=== PATIENT | male | born 1980 | race Two or more races ===

== ENCOUNTER 2017-03-08 22:54 | Emergency (ER) | payer SELFPAY ==
[~2017-03-08] VITALS: Ht 167.6 cm; Wt 90.7 kg
--- NOTE | 2017-03-08 23:07 | PHYS DOC ---
Adult General Chief Complaint Chief Complaint: ALLERGIC REACTION HPI HPI Patient is a 36 year old male who presents with hives. He states it started about 40 from his prior to arrival. He states his throat feels a little itchy. He denies any shortness of breath or wheezing. States he's never had hives before. He is not quite sure when he got into. He states he has them on his back , his legs and thighs. He denies any past medical history or allergies to any meds. He specifically denies any heart issues. He did eat shrimp with some peppers on it. Review of Systems Review of Systems Constitutional: Denies fever or chills [] Eyes: Denies change in visual acuity, redness, or eye pain [] HENT: Denies nasal congestion or sore throat [] Respiratory: Denies cough or shortness of breath [] Cardiovascular: No additional information not addressed in HPI [] GI: Denies abdominal pain, nausea, vomiting, bloody stools or diarrhea [] : Denies dysuria or hematuria [] Musculoskeletal: Denies back pain or joint pain [] Integument: Positive for skin lesions Neurologic: Denies headache, focal weakness or sensory changes [] Endocrine: Denies polyuria or polydipsia [] Current Medications Current Medications Current Medications Medications (Trade) Dose Ordered Sig/Regulo Start Time Stop Time Status Last Admin Dose Admin Diphenhydramine HCl (Benadryl) 50 mg 1X ONCE 03/08/17 23:30 03/08/17 23:31 DC 03/08/17 23:28 50 MG Epinephrine HCl (Adrenalin) 0.3 mg 1X ONCE 03/08/17 23:30 03/08/17 23:31 DC 03/08/17 23:35 0.3 MG Famotidine (Pepcid) 20 mg 1X ONCE 03/08/17 23:30 03/08/17 23:31 DC 03/08/17 23:29 20 MG Methylprednisolone Sodium Succinate (SOLU-Medrol 125MG VIAL) 125 mg 1X ONCE 03/08/17 23:30 03/08/17 23:31 DC 03/08/17 23:28 125 MG Sodium Chloride 1,000 ml @ 1,000 mls/hr Q1H 03/08/17 23:30 03/09/17 00:29 DC 03/08/17 23:43 1,000 MLS/HR Allergies Allergies Allergies Coded Allergies Type Severity Reaction Last Updated Verified Iodine and Iodide Containing Produc Allergy Severe HIVES 03/09/17 Yes shellfish derived Allergy Severe HIVES AND THROAT SWELLING 03/09/17 Yes Physical Exam Physical Exam Constitutional: Well developed, well nourished, no acute distress, non-toxic appearance. [] HENT: Normocephalic, atraumatic, bilateral external ears normal, oropharynx moist, no oral exudates, nose normal. [] Eyes: PERRLA, EOMI, conjunctiva normal, no discharge. [] Neck: Normal range of motion, no tenderness, supple, no stridor. [] Cardiovascular:Heart rate regular rhythm, no murmur [] Lungs & Thorax: Bilateral breath sounds clear to auscultation [] Abdomen: Bowel sounds normal, soft, no tenderness, no masses, no pulsatile masses. [] Skin: Warm, dry, no erythema, urticaria across majority of back, groin, thighs Back: No tenderness, no CVA tenderness. [] Extremities: No tenderness, no cyanosis, no clubbing, ROM intact, no edema. [] Neurologic: Alert and oriented X 3, normal motor function, normal sensory function, no focal deficits noted. [] Psychologic: Affect normal, judgement normal, mood normal. [] Current Patient Data Vital Signs Vital Signs Date Time Temp Pulse Resp B/P (MAP) Pulse Ox O2 Delivery O2 Flow Rate FiO2 03/09/17 00:30 77 16 144/70 (94) 97 Room Air 03/08/17 23:03 98.8 98.8 Lab Values Laboratory Tests Test 03/08/17 23:00 03/09/17 00:00 White Blood Count 11.4 x10^3/uL (4.0-11.0) H Red Blood Count 5.42 x10^6/uL (4.30-5.70) Hemoglobin 17.4 g/dL (13.0-17.5) Hematocrit 50.6 % (39.0-53.0) Mean Corpuscular Volume 93 fL (79-100) Mean Corpuscular Hemoglobin 32 pg (25-35) Mean Corpuscular Hemoglobin Concent 34 g/dL (31-37) Red Cell Distribution Width 12.6 % (11.5-14.5) Platelet Count 249 x10^3/uL (140-400) Neutrophils (%) (Auto) 77 % (31-73) H Lymphocytes (%) (Auto) 17 % (24-48) L Monocytes (%) (Auto) 5 % (0-9) Eosinophils (%) (Auto) 0 % (0-3) Basophils (%) (Auto) 0 % (0-3) Neutrophils # (Auto) 8.8 x10^3uL (1.8-7.7) H Lymphocytes # (Auto) 1.9 x10^3/uL (1.0-4.8) Monocytes # (Auto) 0.6 x10^3/uL (0.0-1.1) Eosinophils # (Auto) 0.0 x10^3/uL (0.0-0.7) Basophils # (Auto) 0.0 x10^3/uL (0.0-0.2) Sodium Level 146 mmol/L (136-145) H Potassium Level 3.8 mmol/L (3.5-5.1) Chloride Level 106 mmol/L (98-107) Carbon Dioxide Level 30 mmol/L (21-32) Anion Gap 10 (6-14) Blood Urea Nitrogen 19 mg/dL (8-26) Creatinine 1.0 mg/dL (0.7-1.3) Estimated GFR (Cockcroft-Gault) 84.5 Glucose Level 133 mg/dL (70-99) H Calcium Level 8.7 mg/dL (8.5-10.1) Total Bilirubin 0.2 mg/dL (0.2-1.0) Direct Bilirubin 0.1 mg/dL (0.0-0.2) Aspartate Amino Transferase (AST) 16 U/L (15-37) Alanine Aminotransferase (ALT) 30 U/L (16-63) Alkaline Phosphatase 92 U/L (46-116) Total Protein 7.3 g/dL (6.4-8.2) Albumin 3.9 g/dL (3.4-5.0) Urine Collection Type Unknown Urine Color Yellow Urine Clarity Clear Urine pH 6.0 Urine Specific [place] >=1.030 Urine Protein Negative mg/dL (NEG-TRACE) Urine Glucose (UA) Negative mg/dL (NEG) Urine Ketones (Stick) Negative mg/dL (NEG) Urine Blood Negative (NEG) Urine Nitrite Negative (NEG) Urine Bilirubin Negative (NEG) Urine Urobilinogen Dipstick 1.0 mg/dL (0.2 mg/dL) Urine Leukocyte Esterase Negative (NEG) Urine RBC 3-5 /HPF (0-2) Urine WBC 0 /HPF (0-4) Urine Squamous Epithelial Cells Occ /LPF Urine Bacteria 0 /HPF (0-FEW) Urine Mucus Marked /LPF Laboratory Tests 03/08/17 23:00 Laboratory Tests 03/08/17 23:00 EKG EKG [] Radiology/Procedures Radiology/Procedures [] Impressions: Urticaria Course & Med Decision Making Course & Med Decision Making Pertinent Labs and Imaging studies reviewed. (See chart for details) She presented with hives on his back and groin and legs and complained of an itchy throat. He received IM epi, Solu-Medrol, Benadryl and Pepcid. Since this is his first reaction and it was moderately severe I will discharge him with an EpiPen. He is instructed how to use it and to immediately go the hospital if he has to use it. His symptoms improved dramatically with the first hour. He was watched for several hours and has not had any troubles breathing or swallowing. He is being discharged home with prescription for prednisone and for him to continue Benadryl and Pepcid AC at home. Return precautions given his agreeable Plan B discharged in stable condition this time. Dragon Disclaimer Dragon Disclaimer This electronic medical record was generated, in whole or in part, using a voice recognition dictation system. Departure Departure Impression: Primary Impression: Allergic reaction Disposition: 01 HOME, SELF-CARE Condition: STABLE Referrals: NON,STAFF (PCP) Patient Instructions: Hives Additional Instructions: You received a shot of IM epinephrine to help take care of your hives. Your being discharged home and will only take prednisone for the next 5 days. You can also purchase [id number] Benadryl and Pepcid AC. Please follow the instructions on the bottle for Benadryl and Pepcid AC. I'm not sure what caused you're allergic reaction and may return. Your being discharged with an EpiPen. If you having the symptoms return and have troubles swallowing, itchy throat, breathing difficulty, then use your EpiPen. You will injected it into your thigh. If you have to use your EpiPen, you must come to the urgency department to be evaluated. If you have any troubles breathing swallowing abdominal pain then returned back to emergency department. He should follow with her primary care physician within the next 5 days. Scripts Epinephrine (EPIPEN 2-BARNEY) 0.3 Mg/0.3 Ml Auto.injct 0.3 MG IJ ONCE Y for ANAPHYLAXIS, #1 SYR Prov: SY ANG MD 03/09/17 Prednisone (PREDNISONE) 50 Mg Tablet 1 TAB PO DAILY, #5 TAB Prov: SY ANG MD 03/09/17 Problem Qualifiers Primary Impression: Allergic reaction Encounter type: initial encounter Qualified Codes: T78.40XA - Allergy, unspecified, initial encounter SY ANG MD Mar 08, 2017 23:07
[2017-03-08 23:27] LABS: BASO % 0 % (0-3); EOS % 0 % (0-3); HEMATOCRIT 50.6 % (39.0-53.0); HEMOGLOBIN 17.4 g/dL (13.0-17.5); LYMPH # 1.9 x10^3/uL (1.0-4.8); LYMPH % 17 % (24-48); MEAN CORPUSCULAR HEMOGLOBIN 32 pg (25-35); MEAN CORPUSCULAR HGB CONC 34 g/dL (31-37); MEAN CORPUSCULAR VOLUME 93 fL (79-100); MONO % 5 % (0-9); NEUT % 77 % (31-73); PLATELET COUNT 249 x10^3/uL (140-400); RED BLOOD COUNT 5.42 x10^6/uL (4.30-5.70); RED CELL DISTRIBUTION WIDTH 12.6 % (11.5-14.5); WHITE BLOOD COUNT 11.4 x10^3/uL (4.0-11.0)
[2017-03-08] MEDS ORDERED: FAMOTIDINE 20 MG/2 ML VIAL IVP ONE (23:30)
[2017-03-08] MEDS ORDERED: diphenhydrAMINE 50 MG/ML VIAL IV ONE (23:30)
[2017-03-08] MEDS ORDERED: methylPREDNISolone SOD SUCC PF 125 MG/2 ML VIAL. IV ONE (23:30)
[2017-03-08] MEDS ORDERED: EPINEPHrine 1 MG/ML VIAL IM ONE (23:30)
[2017-03-08] MEDS ORDERED: IV NORMAL SALINE 1000ML BAG 1,000 ML IV SCH (23:30)
[2017-03-09 00:06] LABS: CALCIUM 8.7 mg/dL (8.5-10.1); GFR 84.5; POTASSIUM 3.8 mmol/L (3.5-5.1)
[2017-03-09 00:11] LABS: ALBUMIN 3.9 g/dL (3.4-5.0); DIRECT BILIRUBIN 0.1 mg/dL (0.0-0.2); TOTAL BILIRUBIN 0.2 mg/dL (0.2-1.0); TOTAL PROTEIN 7.3 g/dL (6.4-8.2)
[2017-03-09 00:12] LABS: BILIRUBIN,URINE NEGATIVE (NEG); GLUCOSE,URINE NEGATIVE (NEG); NITRITE,URINE NEGATIVE (NEG); PROTEIN,URINE NEGATIVE (NEG-TRACE)
[2017-03-09 00:25] LABS: BACTERIA,URINE 0 /HPF (0-FEW); WBC,URINE 0 /HPF (0-4)
[2017-03-09 00:26] LABS: SQUAMOUS EPITHELIAL CELL,UR OCC /LPF
[2017-03-09] MEDS ORDERED: PRED50TA PO (01:24)
[2017-03-09] MEDS ORDERED: EPIPEN 2-P0.3 MG/0.3 IJ (01:58)
[2017-03-09 02:30] VITALS: BP 119/66
--- NOTE | 2017-03-09 07:53 | RAD ---
Indication allergic reaction. Shortness of air. A single view of the chest was obtained. No prior imaging of the chest is available. The heart and pulmonary vessels appear normal. The mediastinum has a normal appearance. The lungs are clear. Bony structures appear grossly intact. IMPRESSION: No acute or focal process is seen in the chest
== END 2017-03-09 02:30 | disposition home or self-care (01) ==
LOC: ER 22:54
DX: T78.40XA Allergy, unspecified, initial encounter (principal); Z91.041 Radiographic dye allergy status; Z91.013 Allergy to seafood
CPT/HCPCS: 36415; 71010; 80048; 80076; 81001; 85027; 96361; 96372; 96374; 96375; 99285; J0171; J1200; J2930; J7030; S0028